=== PATIENT | male | born 1965 | race Hispanic/Latino ===

== ENCOUNTER → 2017-01-07 | Outpatient (CLI) | payer OTHER ==
--- NOTE | 2017-01-08 20:24 | MRI ---
MRI left wrist without contrast INDICATION: Wrist pain concern for scaphoid fracture injury one month ago felt pop while hammering TECHNIQUE: Noncontrast MR imaging left wrist FINDINGS: There is severe osteoarthrosis of the basal joint of thumb. There is mild osteoarthrosis of the STT compartment. There are scattered degenerative cysts and scattered degenerative marrow edema throughout the wrist. No evidence of gross carpal instability. There is diffuse degenerative change of the TFC. There are degenerative changes of the proximal scaphoid but no discrete fracture line is identified. There is focal fluid/cyst along the volar aspect of the distal radius with neck extending to the distal radioulnar joint region. There is diffuse extensor carpi ulnaris tenosynovitis. There is partial lateral subluxation of the extensor carpi ulnaris tendon with interstitial tendinosis and partial tear with adjacent soft tissue edema and mild marrow edema. No rupture of the extensor or flexor tendons otherwise. 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 Electronically signed by: Ayo Mitchell MD 01/08/2017 8:23 PM [facility]
== END ==
LOC: MRI 11:14
PROVIDERS: ATTEND Nurse Practitioner Family
DX: S62.002A Unspecified fracture of navicular [scaphoid] bone of left wrist, initial encounter for closed fracture (principal); M19.032 Primary osteoarthritis, left wrist

== ENCOUNTER → 2017-02-12 | Outpatient (CLI) | payer OTHER ==
--- NOTE | 2017-02-12 09:23 | RAD ---
EXAM DESCRIPTION: Wrist,Left 3 Views CLINICAL HISTORY: 51 years, Male, PN IN WRIST COMPARISON: None TECHNIQUE: AP/ lateral/ oblique views of the left wrist. FINDINGS: Left wrist study shows no fracture or dislocation. Carpal relationships are well-maintained. No significant arthritic changes are observed. IMPRESSION: 1. Normal left wrist three views Electronically signed by: Shiva Ariza MD 02/12/2017 9:21 AM [facility] [place]
== END | disposition home or self-care (01) ==
LOC: RAD 08:02
PROVIDERS: ATTEND Orthopaedic Surgery
DX: M25.532 Pain in left wrist (principal)

== ENCOUNTER → 2018-08-27 | Outpatient (CLI) | payer OTHER | LOC: GMAE 14:10 | PROVIDERS: ATTEND Family Medicine | DX: Z00.00 Encounter for general adult medical examination without abnormal findings (principal) ==

== ENCOUNTER → 2018-09-01 | Outpatient (CLI) | payer OTHER ==
--- NOTE | 2018-09-01 10:20 | RAD ---
Left shoulder 4 views INDICATION: Shoulder pain IMPRESSION: No fracture or dislocation. No advanced arthrosis. Small calcification or ossification along the proximal humerus possibly related to the bicep. Minimal hypertrophy of the AC joint. Electronically signed by: Ayo Mitchell MD 09/01/2018 10:17 AM CDT
== END ==
LOC: RAD 09:25
PROVIDERS: ATTEND Orthopaedic Surgery
DX: M25.812 Other specified joint disorders, left shoulder (principal)